=== PATIENT | female | born 1965 | race American Indian/Alaskan Native ===

== ENCOUNTER 2017-07-24 11:47 | Emergency (ER) | payer OTHER ==
[2017-07-24 12:07] VITALS: BP 149/100
[2017-07-24] MEDS ORDERED: MOTRIN PO ONE (14:03)
--- NOTE | 2017-07-24 14:29 | Cat Scan Report ---
FINAL REPORT PROCEDURE: CT HEAD/BRAIN WO CON TECHNIQUE: Computerized tomography of the head was performed without contrast material. HISTORY: headache COMPARISON: No prior studies are available for comparison. FINDINGS: Brain: Brain density appears normal. No evidence of intracranial hemorrhage. No parenchymal hemorrhage, mass lesions or mass effect are seen. No abnormal extraxial fluid collects or masses are seen. Nonspecific mineralization of the right and left basal ganglia are visualized. Ventricles: Ventricles are normal size and are midline. Bone Windows: No evidence of skull fracture. Paranasal sinuses: Visualized portions appear clear. Mastoid air cells: Clear IMPRESSION: Negative exam.
--- NOTE | 2017-07-24 15:56 | Emergency Department Report ---
Entered by EDGARD GOMEZ, acting as scribe for DAYDAY LI NP. - General Chief complaint: Skin Rash Stated complaint: SCALP IRRATATION Time Seen by Provider: 07/24/17 13:00 Source: patient Mode of arrival: Ambulatory Limitations: No Limitations - History of Present Illness Initial comments: This is a 52-year-old nontoxic, well nourished in appearance, no acute signs of distress presents with scalp irritation intermittent for 3 years. Patient states she noticed fungus in her scalp and went to a dermatologists and was prescribed topical fungal cream with unchanged symptoms. 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 She states she feels lumps and whelps in her scalp. Patient also has a secondary complaint of headache intermittent for 3 years. Patient stated has been going to [facility] and [facility] providers but never received a scan of the head. Patient is requesting a CT scan to rule out any abnormality. Patient described headache has intermittent aching diffisuly with level of 6/10. Patient describes headache as gradual onset. Patient denies chest pain, SOB, nausea, vomiting, blurry vision, trauma, back, nausea, vomiting , fever, chills, numbness or tingling. Patient states allergies she does not have any allergies to Flagyl. Patient stated she started to vomit during taking Flagyl but staetd he was not from Flagyl and was from Iron medication. MD complaint: other (scalp irritation and headache) -: Gradual, year(s) (3) Location: head Severity: moderate Severity scale (0 -10): 6 Quality: aching Consistency: intermittent Improves with: none Worsens with: none Context: none Associated symptoms: itching Treatments Prior to Arrival: none - Related Data Previous Rx's Medication Instructions Recorded Last Taken Type Permethrin 5% [Acticin 5% CREAM] 1 applicatio TP ONCE #60 gram 11/16/13 Rx Cefuroxime Axetil [Ceftin] 500 mg PO Q12H #20 tablet 06/07/14 Unknown Rx Pantoprazole [Protonix TAB] 40 mg PO DAILY #30 tablet 06/07/14 Unknown Rx Sucralfate [Carafate] 1 gm PO ACHS #30 tablet 06/07/14 Unknown Rx Warfarin [Coumadin] 6 mg PO DAILY@1700 #30 tablet 06/07/14 Unknown Rx oxyCODONE /ACETAMINOPHEN [Percocet 1 tab PO Q6HR PRN #24 tablet 06/07/14 Unknown Rx 5/325] Ibuprofen [Motrin 600 MG tab] 600 mg PO Q8H PRN #30 tablet 07/24/17 Unknown Rx Itraconazole [Onmel] 200 mg PO QDAY #7 tab 07/24/17 Unknown Rx Allergies Allergy/AdvReac Type Severity Reaction Status Date / Time metronidazole [From Flagyl] Allergy Vomiting Verified 05/25/14 18:59 Metronidazole HCl Allergy Vomiting Verified 09/16/13 04:26 [From Flagyl] Abscess Boil HPI - HPI Chief Complaint: Skin Rash Stated Complaint: SCALP IRRATATION Home Medications: Previous Rx's Medication Instructions Recorded Last Taken Type Permethrin 5% [Acticin 5% CREAM] 1 applicatio TP ONCE #60 gram 11/16/13 Rx Cefuroxime Axetil [Ceftin] 500 mg PO Q12H #20 tablet 06/07/14 Unknown Rx Pantoprazole [Protonix TAB] 40 mg PO DAILY #30 tablet 06/07/14 Unknown Rx Sucralfate [Carafate] 1 gm PO ACHS #30 tablet 06/07/14 Unknown Rx Warfarin [Coumadin] 6 mg PO DAILY@1700 #30 tablet 06/07/14 Unknown Rx oxyCODONE /ACETAMINOPHEN [Percocet 1 tab PO Q6HR PRN #24 tablet 06/07/14 Unknown Rx 5/325] Ibuprofen [Motrin 600 MG tab] 600 mg PO Q8H PRN #30 tablet 07/24/17 Unknown Rx Itraconazole [Onmel] 200 mg PO QDAY #7 tab 07/24/17 Unknown Rx Allergies/Adverse Reactions: Allergies Allergy/AdvReac Type Severity Reaction Status Date / Time metronidazole [From Flagyl] Allergy Vomiting Verified 05/25/14 18:59 Metronidazole HCl Allergy Vomiting Verified 09/16/13 04:26 [From Flagyl] ED Review of Systems Comment: All other systems reviewed and negative Constitutional: denies: chills, fever, weakness Eyes: denies: eye pain, eye discharge, vision change ENT: denies: ear pain, throat pain Respiratory: denies: cough, shortness of breath, wheezing Cardiovascular: denies: chest pain, palpitations Endocrine: no symptoms reported Gastrointestinal: denies: abdominal pain, nausea, vomiting, diarrhea Genitourinary: denies: urgency, dysuria, discharge Musculoskeletal: denies: back pain, joint swelling, arthralgia Skin: rash (scalp irritation with circular crusting and scaling.). denies: lesions, change in color, change in hair/nails Neurological: headache. denies: weakness, numbness, paresthesias Psychiatric: denies: anxiety, depression Hematological/Lymphatic: denies: easy bleeding, easy bruising ED Past Medical Hx - Past Medical History Hx Hypertension: No Hx Congestive Heart Failure: No Hx Diabetes: No Hx Deep Vein Thrombosis: Yes Hx Pulmonary Embolism: Yes Hx Liver Disease: No Hx Renal Disease: No Hx Seizures: No Hx Asthma: No Hx COPD: No Additional medical history: DVT - Surgical History Additional Surgical History: csection tubal ligation - Social History Smoking Status: Never Smoker Substance Use Type: None - Medications Home Medications: Home Medications Medication Instructions Recorded Confirmed Last Taken Type Permethrin 5% [Acticin 5% CREAM] 1 applicatio TP ONCE #60 gram 11/16/1305/13/14 Rx Cefuroxime Axetil [Ceftin] 500 mg PO Q12H #20 tablet 06/07/14 Unknown Rx Pantoprazole [Protonix TAB] 40 mg PO DAILY #30 tablet 06/07/14 Unknown Rx Sucralfate [Carafate] 1 gm PO ACHS #30 tablet 06/07/14 Unknown Rx Warfarin [Coumadin] 6 mg PO DAILY@1700 #30 tablet 06/07/14 Unknown Rx oxyCODONE /ACETAMINOPHEN [Percocet 1 tab PO Q6HR PRN #24 tablet 06/07/14 Unknown Rx 5/325] Ibuprofen [Motrin 600 MG tab] 600 mg PO Q8H PRN #30 tablet 07/24/17 Unknown Rx Itraconazole [Onmel] 200 mg PO QDAY #7 tab 07/24/17 Unknown Rx ED Physical Exam - General Limitations: No Limitations General appearance: alert, in no apparent distress - Head Head exam: Present: atraumatic, normocephalic, normal inspection - Eye Eye exam: Present: normal appearance, PERRL, EOMI. Absent: scleral icterus, conjunctival injection, nystagmus, periorbital swelling, periorbital tenderness Pupils: Present: normal accommodation - ENT ENT exam: Present: normal exam, normal orophraynx, mucous membranes moist, TM's normal bilaterally, normal external ear exam - Neck Neck exam: Present: normal inspection, full ROM. Absent: tenderness, meningismus, lymphadenopathy, thyromegaly - Respiratory Respiratory exam: Present: normal lung sounds bilaterally. Absent: respiratory distress, wheezes, rales, rhonchi, stridor, chest wall tenderness, accessory muscle use, decreased breath sounds, prolonged expiratory - Cardiovascular Cardiovascular Exam: Present: regular rate, normal rhythm, normal heart sounds. Absent: bradycardia, tachycardia, irregular rhythm, systolic murmur, diastolic murmur, rubs, gallop - GI/Abdominal GI/Abdominal exam: Present: soft, normal bowel sounds. Absent: distended, tenderness, guarding, rebound, rigid, diminished bowel sounds - Rectal Rectal exam: Present: deferred - Extremities Exam Extremities exam: Present: normal inspection, full ROM, normal capillary refill. Absent: tenderness, pedal edema, joint swelling, calf tenderness - Back Exam Back exam: Present: normal inspection, full ROM. Absent: tenderness, CVA tenderness (L), muscle spasm, paraspinal tenderness, vertebral tenderness, rash noted - Neurological Exam Neurological exam: Present: alert, oriented X3, CN II-XII intact, normal gait, reflexes normal - Expanded Neurological Exam Expanded Patient oriented to: Present: person, place, time Speech: Present: fluid speech Cranial nerves: EOM's Intact: Normal, Gag Reflex: Normal, Tongue Deviation: Normal, Nystagmus: Normal, Facial Sensation: Normal, Facial Palsy with Forehead Movement: Normal, Facial Palsy without Forehead Movement: Normal Cerebellar function: Finger to Nose: Normal, Heel to Tucker: Normal, Romberg: Normal Upper motor neuron: Joshua Neglect: Normal, Pronator Drift: Normal, Babinski Sign : Normal, Sensory Extinction: Normal Sensory exam: Upper Extremity Light Touch: Normal, Upper Extremity Pin Prick: Normal, Upper Extremity Temperature: Normal, UE 2 Point Discrimination: Normal, Lower Extremity Light Touch: Normal, Lower Extremity Pin Prick: Normal, Lower Extremity Temperature: Normal, LE 2 Point Discrimination: Normal Motor strength exam: RUE: 5, LUE: 5, RLE: 5, LLE: 5 DTR: bicep (R): 2+, bicep (L): 2+, tricep (R): 2+, tricep (L): 2+, knee (R): 2+ , knee (L): 2+, ankle (R): 2+, ankle (L): 2+ Best Eye Response ([place]): (4) open spontaneously Best Motor Response ([place]): (6) obeys commands Best Verbal Response ([place]): (5) oriented [place] Total: 15 - Psychiatric Psychiatric exam: Present: normal affect, normal mood - Skin Skin exam: Present: warm, dry, intact, normal color, other (scalp irritation with circular crusting, redness, and scaling.) ED Course Vital Signs 07/24/17 11:58 Temperature 98.1 F Pulse Rate 61 Respiratory 18 Rate Blood Pressure 149/100 O2 Sat by Pulse 100 Oximetry - Reevaluation(s) Reevaluation #1: 07/24/17 13:59 patient is speaking in full sentences with no signs of distress noted. ED Medical Decision Making - Medical Decision Making 52-year-old female that presents with tinea corporis and chronic headache. Patient requested for a CT scan. CT scan of head/brain has been obtained without contrast with normal findings and no abnormalities. Dictated by radiologist. Patient was notified of CT findings with no further questions noted by the patient. Patient be treated with itraconazole at discharge. Patient was instructed to follow-up with a primary care doctor/neurologist 3-5 days or symptoms worsen and continue return to emergency room as soon as possible. Patient is also instructed not to drink any alcohol while taking antibiotics. ED Disposition Clinical Impression: Tinea corporis Chronic headache Qualifiers: Headache type: unspecified Intractability: not intractable Qualified Code(s): R51 - Headache Disposition: DC-01 TO HOME OR SELFCARE Is pt being admited?: No Does the pt Need Aspirin: No Condition: Stable Instructions: Acute Headache (ED), Ibuprofen (By mouth), Itraconazole (By mouth ), Tinea Corporis (ED) Additional Instructions: follow-up with a primary care doctor/neurologist 3-5 days or symptoms worsen and continue return to emergency room as soon as possible. Do not consume any alcohol while taking antibiotics. Prescriptions: Ibuprofen [Motrin 600 MG tab] 600 mg PO Q8H PRN #30 tablet PRN Reason: Pain Itraconazole [Onmel] 200 mg PO QDAY #7 tab Referrals: PRIMARY CARE, [Primary Care Provider] - 3-5 Days CORAZON BUNN MD [Staff Physician] - 3-5 Days [facility] [Outside] - 3-5 Days [facility] [Outside] - 3-5 Days AMEE PÉREZ MD [Staff Physician] - 3-5 Days Forms: Work/School Release Form(ED) This documentation as recorded by the PATRICIA weber PEARL,accurately reflects the service I personally performed and the decisions made by ,DAYDAY LI, REPACKER.
== END 2017-07-24 14:38 | disposition home or self-care (01) ==
LOC: ED 11:47
DX: B35.4 Tinea corporis (principal); R51 Headache; Z88.8 Allergy status to other drugs, medicaments and biological substances
CPT/HCPCS: 70450

== ENCOUNTER 2018-01-04 09:07 | Emergency (ER) | payer SELFPAY ==
[2018-01-04 09:26] VITALS: BP 133/80
--- NOTE | 2018-01-04 12:29 | Emergency Department Report ---
HPI - General Chief Complaint: Skin Rash Time Seen by Provider: 01/04/18 12:24 - HPI HPI: Ms. Crarion presents with scalp irritation and eye watering. She feels a crawling sensation in her scalp. She has hives on her extremities. Symptoms have existed for several months. Denies throat swelling or dyspnea. ED Past Medical Hx - Past Medical History Previous Medical History?: Yes Hx Hypertension: No Hx Congestive Heart Failure: No Hx Diabetes: No Hx Deep Vein Thrombosis: Yes Hx Pulmonary Embolism: Yes Hx Liver Disease: No Hx Renal Disease: No Hx Seizures: No Hx Asthma: No Hx COPD: No Additional medical history: DVT - Surgical History Past Surgical History?: Yes Additional Surgical History: csection. tubal ligation - Social History Smoking Status: Never Smoker Substance Use Type: None - Medications Home Medications: Home Medications Medication Instructions Recorded Confirmed Last Taken Type Permethrin 5% [Acticin 5% CREAM] 1 applicatio TP ONCE #60 gram 11/16/1305/13/14 Rx Cefuroxime Axetil [Ceftin] 500 mg PO Q12H #20 tablet 06/07/14 Unknown Rx Pantoprazole [Protonix TAB] 40 mg PO DAILY #30 tablet 06/07/14 Unknown Rx Sucralfate [Carafate] 1 gm PO ACHS #30 tablet 06/07/14 Unknown Rx Warfarin [Coumadin] 6 mg PO DAILY@1700 #30 tablet 06/07/14 Unknown Rx oxyCODONE /ACETAMINOPHEN [Percocet 1 tab PO Q6HR PRN #24 tablet 06/07/14 Unknown Rx 5/325] Ibuprofen [Motrin 600 MG tab] 600 mg PO Q8H PRN #30 tablet 07/24/17 Unknown Rx Itraconazole [Onmel] 200 mg PO QDAY #7 tab 07/24/17 Unknown Rx Ketoconazole (Nf) [Ketoconazole 120 ml TP 1XW #1 shampoo 01/04/18 Unknown Rx Shampoo (Nf)] predniSONE [Deltasone] 60 mg PO QDAY 5 Days #15 tab 01/04/18 Unknown Rx ED Review of Systems ROS: Stated complaint: SKIN IRRITATION Other details as noted in HPI Comment: All other systems reviewed and negative Constitutional: denies: fever, malaise Respiratory: denies: cough Cardiovascular: denies: chest pain Physical Exam - Physical Exam Vital Signs: Vital Signs 01/04/18 09:21 Temperature 98.7 F Pulse Rate 60 Respiratory 18 Rate Blood Pressure 133/80 O2 Sat by Pulse 98 Oximetry Physical Exam: General: Well-appearing, no acute distress HEENT: Normocephalic atraumatic pupils equal round and reactive to light anicteric sclera Nose: no rhinorrhea Oropharynx: Clear mucous membranes no lesions scalp: moist hair without lesions or infestation Neck: supple, no meningismus Chest: Clear to auscultation bilaterally no rales rhonchi no wheezes Cardiac: Regular rate and rhythm no murmurs no rubs no gallops Abdomen: Soft nontender nondistended positive bowel sounds no guarding Extremities: No cyanosis no clubbing no edema Neuro: Moves all extremities 4, no gross deficits Psychiatric: Alert and oriented 4 normal affect normal judgment normal insight Skin: mild redness upper extremities ED Course Vital Signs 01/04/18 09:21 Temperature 98.7 F Pulse Rate 60 Respiratory 18 Rate Blood Pressure 133/80 O2 Sat by Pulse 98 Oximetry ED Medical Decision Making - Medical Decision Making Ms. Carrion presents with scalp irritation, watery eyes and skin redness. I reviewed medical record. She has hx of scabies and delusions of parasites. I do not suspect acute psychosis. She does not appear to be a harm to herself or others. I will prescribe prednisone and antifungal shampoo. Critical care attestation.: If time is entered above; I have spent that time in minutes in the direct care of this critically ill patient, excluding procedure time. ED Disposition Clinical Impression: Scalp irritation, Dermatitis Disposition: DC-01 TO HOME OR SELFCARE Is pt being admited?: No Does the pt Need Aspirin: No Condition: Good Instructions: Contact Dermatitis (ED) Prescriptions: Ketoconazole (Nf) [Ketoconazole Shampoo (Nf)] 120 ml TP 1XW #1 shampoo predniSONE [Deltasone] 60 mg PO QDAY 5 Days #15 tab Referrals: PRIMARY CARE, [Primary Care Provider] - 3-5 Days Time of Disposition: 12:33
== END 2018-01-04 12:44 | disposition home or self-care (01) ==
LOC: ED 09:07
DX: L30.8 Other specified dermatitis (principal); Z86.711 Personal history of pulmonary embolism; Z98.51 Tubal ligation status
CPT/HCPCS: 99282

== ENCOUNTER 2018-08-03 10:19 | Emergency (ER) | payer SELFPAY ==
[2018-08-03] MEDS ORDERED: ZOFRAN IV ONE (13:08)
[2018-08-03] MEDS ORDERED: MORPHINE IV ONE ×2 (13:08→16:27)
--- NOTE | 2018-08-03 13:12 | Emergency Department Report ---
Blank Doc - Documentation Documentation: Patient presents to the emergency department with a chief complaint of bilateral leg pain as well as chest pain. Patient states she was diagnosed with a DVT of her left leg at another hospital was not giving anticoagulation medications. Patient states she has a history of blood clots of her lungs and lids. Patient also states that she is short of breath with exertion is concerned that she might have a pulmonary emboli as well. Care of patient will be taken over by the mid-level care provider with me available for consultation
--- NOTE | 2018-08-03 13:20 | Emergency Department Report ---
ED Extremity Problem HPI - General Chief complaint: Pain General Stated complaint: SWELLING ON BOTH LEGS/BLOOD CLOTS Time Seen by Provider: 08/03/18 12:42 Source: patient Mode of arrival: Ambulatory Limitations: Physical Limitation - History of Present Illness Initial comments: Patient presents to the emergency department with a chief complaint of bilateral leg pain as well as chest pain. Patient states she was diagnosed with a DVT of her left leg at another hospital was not giving anticoagulation medications. Patient states she has a history of blood clots of her lungs and legs. Patient also states that she is short of breath with exertion is concerned that she might have a pulmonary emboli as well. Patient reports that the pain is 10/10, worse in left leg and right and she is having difficulty walking. She reports pain is crampy and sharp and she has taken medication but it is not helping. She said swelling to her left leg is getting worse. No alleviating factors but exacerbated by walking, palpation. She denies any shortness of breath. Denies any cough, nausea or vomiting or fever or chills. She says she was not Coumadin which did not occur off for years ago. She says she also has IVC filter and which got lost in her body and that was placed over 20 years ago. Patient denies any history of clotting disorders. She does not have access to healthcare at present. She denies having a primary care doctor. Denies any abdominal or back pain. MD Complaint: extremity pain, extremity swelling Onset/Timin -: week(s) Location: bilateral lower extremity History of Same: Yes -: Yes myalgia, Yes arthralgia, No fever, No associated dyspnea, Yes associated chest pain Radiation: none Severity scale (0 -10): 10 Quality: aching, sharp, constant Improves with: nothing Worsens with: weight bearing, walking, exertion, palpation Associated Symptoms: chest pain, myalgias, arthralgias. denies: shortness of breath, fever, rash - Related Data Previous Rx's Medication Instructions Recorded Last Taken Type Permethrin 5% [Acticin 5% CREAM] 1 applicatio TP ONCE #60 gram 11/16/13 Rx Cefuroxime Axetil [Ceftin] 500 mg PO Q12H #20 tablet 06/07/14 Unknown Rx Pantoprazole [Protonix TAB] 40 mg PO DAILY #30 tablet 06/07/14 Unknown Rx Sucralfate [Carafate] 1 gm PO ACHS #30 tablet 06/07/14 Unknown Rx Warfarin [Coumadin] 6 mg PO DAILY@1700 #30 tablet 06/07/14 Unknown Rx Ibuprofen [Motrin 600 MG tab] 600 mg PO Q8H PRN #30 tablet 07/24/17 Unknown Rx Itraconazole [Onmel] 200 mg PO QDAY #7 tab 07/24/17 Unknown Rx Ketoconazole (Nf) [Ketoconazole 120 ml TP 1XW #1 shampoo 01/04/18 Unknown Rx Shampoo (Nf)] predniSONE [Deltasone] 60 mg PO QDAY 5 Days #15 tab 01/04/18 Unknown Rx Apixaban [Eliquis] 5 mg PO Q12H 14 Days #74 tablet 08/03/18 Unknown Rx oxyCODONE /ACETAMINOPHEN [Percocet 1 tab PO Q6HR PRN #12 tablet 08/03/18 Unknown Rx 5/325 mg] Allergies Allergy/AdvReac Type Severity Reaction Status Date / Time metronidazole [From Flagyl] Allergy Vomiting Verified 05/25/14 18:59 Metronidazole HCl Allergy Vomiting Verified 09/16/13 04:26 [From Flagyl] ED Review of Systems ROS: Stated complaint: SWELLING ON BOTH LEGS/BLOOD CLOTS Other details as noted in HPI Constitutional: denies: chills, fever Eyes: denies: eye pain, eye discharge, vision change ENT: denies: ear pain, throat pain, congestion Respiratory: denies: cough, shortness of breath, SOB with exertion, SOB at rest , stridor, wheezing Cardiovascular: chest pain, edema. denies: palpitations, dyspnea on exertion, syncope Gastrointestinal: denies: abdominal pain, nausea, vomiting, diarrhea, hematemesis, hematochezia Genitourinary: denies: urgency, dysuria, hematuria, discharge Musculoskeletal: arthralgia, myalgia, other (swelling to both legs). denies: back pain, joint swelling Skin: denies: rash, lesions Neurological: denies: headache, weakness, numbness, paresthesias, confusion, abnormal gait, vertigo ED Past Medical Hx - Past Medical History Previous Medical History?: Yes Hx Hypertension: No Hx Congestive Heart Failure: No Hx Diabetes: No Hx Deep Vein Thrombosis: Yes Hx Pulmonary Embolism: Yes Hx Liver Disease: No Hx Renal Disease: No Hx Seizures: No Hx Asthma: No Hx COPD: No Additional medical history: DVT - Surgical History Past Surgical History?: Yes Additional Surgical History: csection. tubal ligation. 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 in her body - Family History Family history: hypertension - Social History Smoking Status: Never Smoker Substance Use Type: None - Medications Home Medications: Home Medications Medication Instructions Recorded Confirmed Last Taken Type Permethrin 5% [Acticin 5% CREAM] 1 applicatio TP ONCE #60 gram 11/16/1305/13/14 Rx Cefuroxime Axetil [Ceftin] 500 mg PO Q12H #20 tablet 06/07/14 Unknown Rx Pantoprazole [Protonix TAB] 40 mg PO DAILY #30 tablet 06/07/14 Unknown Rx Sucralfate [Carafate] 1 gm PO ACHS #30 tablet 06/07/14 Unknown Rx Warfarin [Coumadin] 6 mg PO DAILY@1700 #30 tablet 06/07/14 Unknown Rx Ibuprofen [Motrin 600 MG tab] 600 mg PO Q8H PRN #30 tablet 07/24/17 Unknown Rx Itraconazole [Onmel] 200 mg PO QDAY #7 tab 07/24/17 Unknown Rx Ketoconazole (Nf) [Ketoconazole 120 ml TP 1XW #1 shampoo 01/04/18 Unknown Rx Shampoo (Nf)] predniSONE [Deltasone] 60 mg PO QDAY 5 Days #15 tab 01/04/18 Unknown Rx Apixaban [Eliquis] 5 mg PO Q12H 14 Days #74 tablet 08/03/18 Unknown Rx oxyCODONE /ACETAMINOPHEN [Percocet 1 tab PO Q6HR PRN #12 tablet 08/03/18 Unknown Rx 5/325 mg] ED Physical Exam - General Limitations: Physical Limitation General appearance: alert, in no apparent distress - Head Head exam: Present: atraumatic, normocephalic, normal inspection - Eye Eye exam: Present: normal appearance, PERRL, EOMI Pupils: Present: normal accommodation - ENT ENT exam: Present: normal exam, normal orophraynx, mucous membranes moist, TM's normal bilaterally, normal external ear exam - Neck Neck exam: Present: normal inspection, full ROM. Absent: tenderness, lymphadenopathy - Respiratory Respiratory exam: Present: normal lung sounds bilaterally. Absent: respiratory distress, wheezes, rales, rhonchi, stridor, chest wall tenderness - Cardiovascular Cardiovascular Exam: Present: regular rate, normal rhythm, normal heart sounds. Absent: systolic murmur, diastolic murmur - GI/Abdominal GI/Abdominal exam: Present: soft, normal bowel sounds. Absent: distended, tenderness, guarding, rebound, rigid, organomegaly, mass - Extremities Exam Extremities exam: Present: full ROM, tenderness (both legs), normal capillary refill, other. Absent: normal inspection, pedal edema (patient able to ambulate but she is limping patient states that she is having pain which is worse on the left), joint swelling, calf tenderness - Expanded Lower Extremity Exam Left Hip exam: Present: normal inspection, full ROM, pelvic stability. Absent: tenderness, swelling, abrasion, laceration, ecchymosis, deformity, crepidus, dislocation, erythema, external rotation, internal rotation, shortening Upper Leg exam: Present: normal inspection, full ROM. Absent: tenderness, swelling, abrasion, laceration, ecchymosis, deformity, crepidus, dislocation, erythema Knee exam: Present: full ROM, tenderness (posterior popliteal space), full knee extension. Absent: normal inspection, swelling, abrasion, laceration, ecchymosis, deformity, crepidus, dislocation, erythema, effusion, pain w/ pronation/supination, posterior draw sign, pain/laxity with valgus, pain/laxity with varus Lower Leg exam: Present: full ROM, tenderness, swelling, Morenita's sign. Absent: normal inspection, abrasion, laceration, ecchymosis, deformity, crepidus, dislocation, erythema, palpable cord Ankle exam: Present: normal inspection, full ROM. Absent: tenderness, swelling , abrasion, laceration, ecchymosis, deformity, crepidus, dislocation, erythema Foot/Toe exam: Present: normal inspection, full ROM. Absent: tenderness, swelling, abrasion, laceration, ecchymosis, deformity, crepidus, dislocation, erythema, amputation, puncture wound, foreign body, calcaneal tenderness, tenderness at base of 5th metatarsal, nail avulsion, subungual hematoma Neuro vascular tendon exam: Present: no vascular compromise, significant pain with passive ROM of distal joint. Absent: pulse deficit, abnormal cap refill, motor deficit, sensory deficit, tendon deficit, extremity cold to touch, pallor , abnormal 2-point discrimination, decreased fine/light touch, foot drop, peroneal nerve deficit Gait: Positive: antalgic Right Hip exam: Present: normal inspection, full ROM, pelvic stability. Absent: tenderness, swelling, abrasion, laceration, ecchymosis, deformity, crepidus, dislocation, erythema, external rotation, internal rotation, shortening Upper Leg exam: Present: normal inspection, full ROM. Absent: tenderness, swelling, abrasion, laceration, ecchymosis, deformity, crepidus, dislocation, erythema Knee exam: Present: normal inspection, full ROM, full knee extension. Absent: tenderness, swelling, abrasion, laceration, ecchymosis, deformity, crepidus, dislocation, erythema, effusion, pain w/ pronation/supination, posterior draw sign, pain/laxity with valgus, pain/laxity with varus Lower Leg exam: Present: full ROM, tenderness, swelling, Morenita's sign. Absent: normal inspection, abrasion, laceration, ecchymosis, deformity, crepidus, dislocation, erythema, palpable cord Ankle exam: Present: normal inspection, full ROM. Absent: tenderness, swelling , abrasion, laceration, ecchymosis, deformity, crepidus, dislocation, erythema Foot/Toe exam: Present: normal inspection, full ROM. Absent: tenderness, swelling, abrasion, laceration, ecchymosis, deformity, crepidus, dislocation, erythema, amputation, puncture wound, foreign body, calcaneal tenderness, tenderness at base of 5th metatarsal, nail avulsion, subungual hematoma Neuro vascular tendon exam: Present: no vascular compromise. Absent: pulse deficit, abnormal cap refill, motor deficit, sensory deficit, tendon deficit, extremity cold to touch, abnormal 2-point discrimination, decreased fine/light touch, foot drop, significant pain with passive ROM of distal joint Gait: Positive: observed and limited by pain - Back Exam Back exam: Present: normal inspection, full ROM, other (ambulate with limp. Due to bilateral lower extremity pain). Absent: tenderness, CVA tenderness (R) , CVA tenderness (L), muscle spasm, paraspinal tenderness, vertebral tenderness , rash noted - Neurological Exam Neurological exam: Present: alert, oriented X3, abnormal gait (limp. Due to bilateral lower extremity pain and swelling to lower extremity), reflexes normal. Absent: motor sensory deficit - Psychiatric Psychiatric exam: Present: normal affect, normal mood - Skin Skin exam: Present: warm, dry, intact, normal color. Absent: rash ED Course Vital Signs 08/03/18 08/03/18 08/03/18 10:26 14:24 15:40 Temperature 99.9 F H Pulse Rate 91 H Respiratory 18 18 Rate Blood Pressure 134/88 Blood Pressure [Left] O2 Sat by Pulse 99 99 Oximetry 08/03/18 08/03/18 08/03/18 15:56 16:25 16:35 Temperature Pulse Rate Respiratory 18 18 18 Rate Blood Pressure Blood Pressure [Left] O2 Sat by Pulse Oximetry 08/03/18 19:55 Temperature 98.6 F Pulse Rate 62 Respiratory 18 Rate Blood Pressure Blood Pressure 125/68 [Left] O2 Sat by Pulse 99 Oximetry - Reevaluation(s) Reevaluation #1: 08/03/18 16:22 Patient received morphine 4 mg IV for pain and offered 4 mg IV for pain and bilateral lower extremity especially to left lower extremity. She has bilateral lower extremity chronic DVT with left lower extremity acute on chronic DVT. Patient is requesting more pain medication she said her left leg is hurting. Patient and ordered VQ scan due to shortness of breath looking for pulmonary embolism and she is awaiting study. Reevaluation #2: 08/03/18 18:14 Patient received an additional 2 mg of morphine IV for left leg pain which she said her pain is better. CTA chest reveals no pulmonary embolism Reevaluation #3: 08/03/18 19:49 Patient is still awaiting an her Eliquis to come up from pharmacy. She received morphine 2 mg but her pain is back so she will be given Percocet 5/3- 52 tablets by mouth. After a look with administration, she will be observed for 2 hours and then she will be going home. Patient updated on plans. 08/03/18 19:50 Reevaluation #4: 08/03/18 20:52 Patient started on Eliquis and will be discharged and 2 hours. Vital signs are stable and she is afebrile. Pain is better after Percocet Reevaluation #5: 08/03/18 22:17 Patient is stable and in no acute distress. Pain is controlled. Vital signs stable she is afebrile ED Medical Decision Making - Lab Data Result diagrams: 08/03/18 13:31 08/03/18 13:31 Lab Results 08/03/18 08/03/18 08/03/18 Range/Units 13:31 13:31 13:31 WBC 7.8 (4.5-11.0) K/mm3 RBC 4.67 (3.65-5.03) M/mm3 Hgb 13.9 (10.1-14.3) gm/dl Hct 41.3 (30.3-42.9) % MCV 88 (79-97) fl MCH 30 (28-32) pg MCHC 34 (30-34) % RDW 12.3 L (13.2-15.2) % Plt Count 164 (140-440) K/mm3 Lymph % (Auto) 25.5 (13.4-35.0) % Eaton % (Auto) 9.2 H (0.0-7.3) % Eos % (Auto) 3.7 (0.0-4.3) % Baso % (Auto) 1.2 (0.0-1.8) % Lymph # 2.0 (1.2-5.4) K/mm3 Eaton # 0.7 (0.0-0.8) K/mm3 Eos # 0.3 (0.0-0.4) K/mm3 Baso # 0.1 (0.0-0.1) K/mm3 Seg Neutrophils % 60.4 (40.0-70.0) % Seg Neutrophils # 4.7 (1.8-7.7) K/mm3 PT (12.2-14.9) Sec. INR (0.87-1.13) APTT (24.2-36.6) Sec. Sodium 141 (137-145) mmol/L Potassium 3.9 (3.6-5.0) mmol/L Chloride 102.2 (98-107) mmol/L Carbon Dioxide 28 (22-30) mmol/L Anion Gap 15 mmol/L BUN 10 (7-17) mg/dL Creatinine 0.6 L (0.7-1.2) mg/dL Estimated GFR > 60 ml/min BUN/Creatinine Ratio 17 % Glucose 99 (65-100) mg/dL Calcium 9.4 (8.4-10.2) mg/dL Total Bilirubin 0.30 (0.1-1.2) mg/dL AST 42 H (5-40) units/L ALT 26 (7-56) units/L Alkaline Phosphatase 85 (35-129) units/L Troponin T < 0.010 (0.00-0.029) ng/mL NT-Pro-B Natriuret Pep 149.6 (0-900) pg/mL Total Protein 7.8 (6.3-8.2) g/dL Albumin 4.3 (3.9-5) g/dL Albumin/Globulin Ratio 1.2 % HCG, Qual (Negative) HCG, Quant (0-4) mIU/mL 08/03/18 08/03/18 08/03/18 Range/Units 13:31 15:17 15:17 WBC (4.5-11.0) K/mm3 RBC (3.65-5.03) M/mm3 Hgb (10.1-14.3) gm/dl Hct (30.3-42.9) % MCV (79-97) fl MCH (28-32) pg MCHC (30-34) % RDW (13.2-15.2) % Plt Count (140-440) K/mm3 Lymph % (Auto) (13.4-35.0) % Eaton % (Auto) (0.0-7.3) % Eos % (Auto) (0.0-4.3) % Baso % (Auto) (0.0-1.8) % Lymph # (1.2-5.4) K/mm3 Eaton # (0.0-0.8) K/mm3 Eos # (0.0-0.4) K/mm3 Baso # (0.0-0.1) K/mm3 Seg Neutrophils % (40.0-70.0) % Seg Neutrophils # (1.8-7.7) K/mm3 PT 12.7 (12.2-14.9) Sec. INR 0.91 (0.87-1.13) APTT 23.5 L (24.2-36.6) Sec. Sodium (137-145) mmol/L Potassium (3.6-5.0) mmol/L Chloride (98-107) mmol/L Carbon Dioxide (22-30) mmol/L Anion Gap mmol/L BUN (7-17) mg/dL Creatinine (0.7-1.2) mg/dL Estimated GFR ml/min BUN/Creatinine Ratio % Glucose (65-100) mg/dL Calcium (8.4-10.2) mg/dL Total Bilirubin (0.1-1.2) mg/dL AST (5-40) units/L ALT (7-56) units/L Alkaline Phosphatase (35-129) units/L Troponin T < 0.010 (0.00-0.029) ng/mL NT-Pro-B Natriuret Pep (0-900) pg/mL Total Protein (6.3-8.2) g/dL Albumin (3.9-5) g/dL Albumin/Globulin Ratio % HCG, Qual (Negative) HCG, Quant 4.26 H (0-4) mIU/mL 08/03/18 Range/Units 15:30 WBC (4.5-11.0) K/mm3 RBC (3.65-5.03) M/mm3 Hgb (10.1-14.3) gm/dl Hct (30.3-42.9) % MCV (79-97) fl MCH (28-32) pg MCHC (30-34) % RDW (13.2-15.2) % Plt Count (140-440) K/mm3 Lymph % (Auto) (13.4-35.0) % Eaton % (Auto) (0.0-7.3) % Eos % (Auto) (0.0-4.3) % Baso % (Auto) (0.0-1.8) % Lymph # (1.2-5.4) K/mm3 Eaton # (0.0-0.8) K/mm3 Eos # (0.0-0.4) K/mm3 Baso # (0.0-0.1) K/mm3 Seg Neutrophils % (40.0-70.0) % Seg Neutrophils # (1.8-7.7) K/mm3 PT (12.2-14.9) Sec. INR (0.87-1.13) APTT (24.2-36.6) Sec. Sodium (137-145) mmol/L Potassium (3.6-5.0) mmol/L Chloride (98-107) mmol/L Carbon Dioxide (22-30) mmol/L Anion Gap mmol/L BUN (7-17) mg/dL Creatinine (0.7-1.2) mg/dL Estimated GFR ml/min BUN/Creatinine Ratio % Glucose (65-100) mg/dL Calcium (8.4-10.2) mg/dL Total Bilirubin (0.1-1.2) mg/dL AST (5-40) units/L ALT (7-56) units/L Alkaline Phosphatase (35-129) units/L Troponin T (0.00-0.029) ng/mL NT-Pro-B Natriuret Pep (0-900) pg/mL Total Protein (6.3-8.2) g/dL Albumin (3.9-5) g/dL Albumin/Globulin Ratio % HCG, Qual Negative (Negative) HCG, Quant (0-4) mIU/mL - EKG Data -: EKG Interpreted by Me (Dr. Luque) EKG shows normal: sinus rhythm Rate: bradycardia (55 beats per minutes) - EKG Data When compared to previous EKG there are: no significant change Interpretation: no acute changes, normal EKG - Radiology Data Radiology results: report reviewed Preliminary bilateral lower extremity venous duplex studies report shows chronic DVT in both CFV's. And acute on chronic DVT in left mid saphenous vein extending onto the left distal saphenous vein, left popliteal vein and left mid popliteal vein and peroneal veins and mid calf. Final report to be read by CTA lungs shows no PE and this was dictated by radiologist and report reviewed by myself. Both MICHEAL BARNEY Female : 1965 [facility]# [id number] 08/03/18 14:41 - Radiology Dept. Note by MILADY CAMPA [facility] Num: [id number] : 1965 Patient Age: 53 VASCULAR LAB.PRELIMINARY REPORT. BLE VENOUS DUPLEX DONE. EVIDENCE OF CHRONIC DVT IN BOTH CFV'S. ACUTE ON CHRONIC DVT IN THE LT.MID SFV EXTENDING DOWN TO THE LT.DS SFV,LT.POP V AND LT.MID PTV/PERONEAL VEINS IN MID CALF. INFORMED AT 1440. Initialized on 08/03/18 14:41 - END OF NOTE Findings [facility] [address] [place] [address] Cat Scan Report Signed Patient: MICHEAL BARNEY MR#: [id number] : 1965 Acct:[id number] Age/Sex: 53 / F ADM Date: 08/03/18 Loc: ED Attending Dr: Ordering Physician: NICHOLE HEARD Date of Service: 08/03/18 Procedure(s): CT angio chest Accession Number(s): [id number] cc: NICHOLE HEARD FINAL REPORT PROCEDURE: CT angiogram chest with contrast. TECHNIQUE: Computerized tomographic angiography of the chest was performed after the IV injection of iodinated nonionic contrast including image processing. The image data was postprocessed using 2-dimensional multiplanar reformatted (MPR) and 3-dimensional (MIP and/or volume rendered) techniques. HISTORY: sob, DVT. Looking for PE COMPARISON: No prior studies are available for comparison. FINDINGS: The trachea and central bronchi appear normal. The lungs are clear and well expanded. There are no signs of pneumonia. The thoracic aorta has a normal caliber without evidence of dissection. The bolus enhancement of the pulmonary arteries is suboptimal. The central pulmonary arteries and 1st order branches appear normal. This study could miss more peripheral emboli. There is no mediastinal adenopathy. The heart size is normal. There are no pleural effusions. The adrenal glands are not enlarged. The thoracic skeleton appears intact. IMPRESSION: Less than ideal evaluation of the pulmonary arteries. No evidence of pulmonary embolism. Transcribed By: MRM Dictated By: CORAZON ORDOÑEZ MD Electronically Authenticated By: CORAZON ORDOÑEZ MD Signed Date/Time: 08/03/181732 DD/ 32 TD/TT: 08/03/181732 - Medical Decision Making This is a 53-year-old patient who came in here complaining of swelling to both legs and pain and swelling and pain is worst in left leg. She essentially went to a hospital last week and it told that she had a DVT in her left leg but they only gave her pain medication and did not give her any blood thinner. Patient says she has a history of DVT in both legs and also pulmonary embolism and she is complaining of some chest pain. She is currently not taking any medication and she does not have access to medical care and she does not have a primary care doctor Patient was screened by Dr. Luque and orders. She was treated for pain to her legs with morphine a total of 6 mg IV and 4 mg and 2 mg increments which helped her pain. While waiting in for her medication for DVT she developed pain and she received Percocet 2 tablets. Emergency room which helped her pain. Vital signs are stable and she is afebrile. Patient also received Zofran 4 mg IV to prevent nausea. She has bilateral duplex Doppler ultrasound chronic bilateral DVT seen but also acute and chronic DVT seen in left lower leg which is the one that is more painful and swollen. Patient had CTA chest which did not show any PE. I corroborated this to Dr. Luque and it was decided the patient will be discharged home on Eliquis. Preliminary ultrasound report for DVT seen but still awaiting final report from radiologist. CT at bedtime dictated and report reviewed by myself and Dr. Luque. Patient had CBC, CMP, BNP, test, troponin which are all stable. PT PTT stable with mild elevation in PTT I discussed lab results and radiology reports with patient and told her that she has an acute DVT on top of chronic DVT in her left leg and she also has chronic DVT in right leg. Patient does not have a primary care doctor nor does she have insurance so she was given a liquid 14 day package. She was given her first dose of Eliquis 10 mg at 9 PM and observed for 2 hours and discharged home with prescription for Eliquis and Percocet. I went over her packet in detail with patient and how to take a look with and she voiced understanding. I discussed with her that she needs to take a dose in the morning and follow directions on prescription and in packet on how to take this medication. I also went over medication with her and told her to read discharge information on this medication and she voiced understanding. Patient discharged home in stable condition with her family member. Vital signs stable and her pains controlled and she is in no acute distress. I gave her multiple resources for health clinics in [facility] that does sliding scale fees based on income and I told her to call around to see who has the least expensive visit. I told her that she will need to follow-up with a primary care doctor on 08/07/2018 and they will need to manage her DVT. She also knows that she has to call the number on the package inserts. - Differential Diagnosis DVT, PE, edema, CHF, PNA. Critical care attestation.: If time is entered above; I have spent that time in minutes in the direct care of this critically ill patient, excluding procedure time. ED Disposition Clinical Impression: Swelling of lower extremity Deep vein thrombosis (DVT) of left lower extremity Qualifiers: Affected thrombotic vein of extremity: unspecified vein of extremity Chronicity : acute Qualified Code(s): I82.402 - Acute embolism and thrombosis of unspecified deep veins of left lower extremity Chronic deep vein thrombosis (DVT) of both lower extremities Qualifiers: Affected thrombotic vein of extremity: unspecified vein of extremity Qualified Code(s): I82.503 - Chronic embolism and thrombosis of unspecified deep veins of lower extremity, bilateral Chest pain Qualifiers: Chest pain type: unspecified Qualified Code(s): R07.9 - Chest pain, unspecified Disposition: DC- TO HOME OR SELFCARE Is pt being admited?: No Does the pt Need Aspirin: No Condition: Stable Instructions: Apixaban (By mouth), Chest Pain (ED), Deep Venous Thrombosis (ED) , Leg Edema (ED) Additional Instructions: Please follow up with outside Medical Center as discussed for management of acute DVT in left leg and chronic DVT in both legs. Take Elequis as prescribed. This is a blood thinner. The discharge information given on this medication If he develops shortness of breath, chest pain, please return to the emergency room FRITZ Take Percocet for severe pain in leg but please do not drive or operate heavy machinery while taking this medication and make sure you take this medication with lots of fiber and drink plenty flutter because it can cause constipation. Please see multiple referral to clinics that will help few if you do not have any health insurance U will need to contact them tomorrow to see who he can get an appointment with. See insert for Eliquis and follow instructions on pamphlet Also, please see packet inserts for side effects. See directions on prescription on how to take Eliquis Prescriptions: Apixaban [Eliquis] 5 mg PO Q12H 14 Days #74 tablet oxyCODONE /ACETAMINOPHEN [Percocet 5/325 mg] 1 tab PO Q6HR PRN #12 tablet PRN Reason: severe pain Referrals: [facility] [Outside] - 08/04/18 [facility] [Outside] - 08/04/18 [facility] [Outside] - 08/04/18 [facility] [Outside] - 08/04/18 [facility] [Outside] - 08/04/18 Forms: Accompanied Note
[2018-08-03 13:40] LABS: Basophils # (Auto) 0.1 K/mm3 (0.0-0.1); Basophils % (Auto) 1.2 % (0.0-1.8); Eosinophils # (Auto) 0.3 K/mm3 (0.0-0.4); Eosinophils % (Auto) 3.7 % (0.0-4.3); Hematocrit 41.3 % (30.3-42.9); Hemoglobin 13.9 gm/dl (10.1-14.3); Lymphocytes % (Auto) 25.5 % (13.4-35.0); Mean Corpuscular HGB Conc 34 % (30-34); Mean Corpuscular Hemoglobin 30 pg (28-32); Mean Corpuscular Volume 88 fl (79-97); Monocytes # (Auto) 0.7 K/mm3 (0.0-0.8); Monocytes % (Auto) 9.2 % (0.0-7.3); Platelet Count 164 K/mm3 (140-440); Red Blood Count 4.67 M/mm3 (3.65-5.03); Red Cell Distribution Width 12.3 % (13.2-15.2)
[2018-08-03 13:59] LABS: Alanine Aminotransferase 26 units/L (7-56); Albumin 4.3 g/dL (3.9-5); BUN/Creatinine Ratio 17; Blood Urea Nitrogen 10 mg/dL (7-17); Calcium 9.4 mg/dL (8.4-10.2); Hemolysis Index 7
[2018-08-03] MEDS ORDERED: MORPHINE ONE ×2 (15:12→16:23)
[2018-08-03] MEDS ORDERED: ZOFRAN ONE (15:12)
[2018-08-03 15:53] LABS: INR 0.91 (0.87-1.13); Partial Thromboplastin Time 23.5 Sec. (24.2-36.6)
--- NOTE | 2018-08-03 17:34 | Cat Scan Report ---
FINAL REPORT PROCEDURE: CT angiogram chest with contrast. TECHNIQUE: Computerized tomographic angiography of the chest was performed after the IV injection of iodinated nonionic contrast including image processing. The image data was postprocessed using 2-dimensional multiplanar reformatted (MPR) and 3-dimensional (MIP and/or volume rendered) techniques. HISTORY: sob, DVT. Looking for PE COMPARISON: No prior studies are available for comparison. FINDINGS: The trachea and central bronchi appear normal. The lungs are clear and well expanded. There are no signs of pneumonia. The thoracic aorta has a normal caliber without evidence of dissection. The bolus enhancement of the pulmonary arteries is suboptimal. The central pulmonary arteries and 1st order branches appear normal. This study could miss more peripheral emboli. There is no mediastinal adenopathy. The heart size is normal. There are no pleural effusions. The adrenal glands are not enlarged. The thoracic skeleton appears intact. IMPRESSION: Less than ideal evaluation of the pulmonary arteries. No evidence of pulmonary embolism.
[2018-08-03] MEDS ORDERED: ELIQUIS PO ONE (18:37)
[2018-08-03] MEDS ORDERED: PERCOCET 5/325 PO ONE (19:49)
[2018-08-03 19:57] VITALS: BP 125/68
== END 2018-08-03 23:17 | disposition home or self-care (01) ==
LOC: ED 10:19
DX: I82.402 Acute embolism and thrombosis of unspecified deep veins of left lower extremity (principal); I82.503 Chronic embolism and thrombosis of unspecified deep veins of lower extremity, bilateral; R07.89 Other chest pain; Z88.1 Allergy status to other antibiotic agents; Z98.51 Tubal ligation status; Z79.899 Other long term (current) drug therapy
CPT/HCPCS: 36415; 71275; 80053; 83880; 84484; 84702; 84703; 85025; 85610; 85730; 93005; 93010; 93970; 96374; 96375; 96376; 99284; J2270; J2405; Q9967

== ENCOUNTER 2020-07-26 14:06 | Emergency (ER) | payer SELFPAY ==
[2020-07-26] MEDS ORDERED: ASPIRIN 325 MG TAB PO ONE (14:29)
--- NOTE | 2020-07-26 15:11 | XRay Report ---
CHEST 1 VIEW 07/26/2020 2:30 PM INDICATION / CLINICAL INFORMATION: Chest Pain. COMPARISON: None available. FINDINGS: SUPPORT DEVICES: None. HEART / MEDIASTINUM: No significant abnormality. LUNGS / PLEURA: No significant pulmonary or pleural abnormality. No pneumothorax. ADDITIONAL FINDINGS: No significant additional findings. IMPRESSION: 1. No acute findings. Signer Name: Owen Schuler MD Signed: 07/26/2020 3:07 PM Workstation Name: [id number]
[2020-07-26 15:37] LABS: Basophils # (Auto) 0.1 K/mm3 (0.0-0.1); Eosinophils # (Auto) 0.3 K/mm3 (0.0-0.4); Eosinophils % (Auto) 4.6 % (0.0-4.3); Hematocrit 41.1 % (30.3-42.9); Hemoglobin 13.7 gm/dl (10.1-14.3); Lymphocytes # (Auto) 2.1 K/mm3 (1.2-5.4); Lymphocytes % (Auto) 31.4 % (13.4-35.0); Mean Corpuscular HGB Conc 33 % (30-34); Mean Corpuscular Volume 90 fl (79-97); Monocytes # (Auto) 0.5 K/mm3 (0.0-0.8); Monocytes % (Auto) 7.7 % (0.0-7.3); Platelet Count 197 K/mm3 (140-440); Red Blood Count 4.57 M/mm3 (3.65-5.03); Red Cell Distribution Width 13.2 % (13.2-15.2)
[2020-07-26 15:41] LABS: Blood Urea Nitrogen 7 mg/dL (7-17); Calcium 9.4 mg/dL (8.4-10.2); Hemolysis Index 8
[2020-07-26 15:42] LABS: BUN/Creatinine Ratio 10
[2020-07-26] MEDS ORDERED: ACETAMINOPHEN W/CODEINE 300-30 MG TAB PO ONE (17:33)
[2020-07-26] MEDS ORDERED: BENZONATATE 100 MG CAP PO ONE (17:33)
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
--- NOTE | 2020-07-26 19:32 | Vascular Lab Report ---
DUPLEX DOPPLER LOWER EXTREMITY VEINS, BILATERAL INDICATION / CLINICAL INFORMATION: left calf pain. TECHNIQUE: Duplex doppler imaging was performed through the veins of both lower extremities using venous lev linda and other maneuvers. COMPARISON: None available. FINDINGS: RIGHT COMMON FEMORAL VEIN: Negative. RIGHT FEMORAL VEIN: Negative. RIGHT POPLITEAL VEIN: Negative. RIGHT CALF VEINS: Negative. LEFT COMMON FEMORAL VEIN: Negative. LEFT FEMORAL VEIN: Negative. LEFT POPLITEAL VEIN: Negative. LEFT CALF VEINS: Negative. ADDITIONAL FINDINGS: None. IMPRESSION: 1. No sonographic evidence for DVT in either lower extremity. Signer Name: Owen Schuler MD Signed: 07/26/2020 7:27 PM Workstation Name: [id number]
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
[2020-07-26] MEDS ORDERED: oxyCODONE 5 MG TAB PO ONE (22:14)
[2020-07-26 22:19] VITALS: BP 121/79
== END 2020-07-26 22:53 | disposition home or self-care (01) ==
LOC: ED 14:06
DX: R07.89 Other chest pain (principal); R06.00 Dyspnea, unspecified; I82.409 Acute embolism and thrombosis of unspecified deep veins of unspecified lower extremity; I26.99 Other pulmonary embolism without acute cor pulmonale; Z79.899 Other long term (current) drug therapy; Z88.8 Allergy status to other drugs, medicaments and biological substances; Z98.51 Tubal ligation status
CPT/HCPCS: 36415; 71045; 71275; 80048; 84484; 85025; 93005; 93971; 99284; Q9967

== ENCOUNTER 2022-05-04 12:37 | Emergency (ER) | payer SELFPAY ==
[2022-05-04 13:31] VITALS: BP 156/75
--- NOTE | 2022-05-04 14:29 | Emergency Department Report ---
ED Recheck HPI - General Chief Complaint: Eye Problems Stated Complaint: REF BY TREVA EYES NON ACTIVE TO LIGHT Time Seen by Provider: 05/04/22 14:27 Source: patient Mode of arrival: Ambulatory Limitations: No Limitations - History of Present Illness Initial Comments: Patient is sent to the emergency room by the plasma donation clinic because her pupils did not react on their exam. Home medications none. Denies alcohol or drugs. Denies any head trauma. Patient states she went to donate and they could not get her pupils to react. Patient has dark brown eyes and dark pupils, she is -[place]. - Related Data Previous Rx's Medication Instructions Recorded Last Taken Type Permethrin 5% [Acticin 5% CREAM] 1 applicatio TP ONCE #60 gram 11/16/13 05/13/14 Rx Cefuroxime Axetil [Ceftin] 500 mg PO Q12H #20 tablet 06/07/14 Unknown Rx Pantoprazole [Protonix TAB] 40 mg PO DAILY #30 tablet 06/07/14 Unknown Rx Sucralfate [Carafate] 1 gm PO ACHS #30 tablet 06/07/14 Unknown Rx Warfarin [Coumadin] 6 mg PO DAILY@1700 #30 tablet 06/07/14 Unknown Rx Ibuprofen [Motrin 600 MG tab] 600 mg PO Q8H PRN #30 tablet 07/24/17 Unknown Rx Itraconazole [Onmel] 200 mg PO QDAY #7 tab 07/24/17 Unknown Rx Ketoconazole (Nf) [Ketoconazole 120 ml TP 1XW #1 shampoo 01/04/18 Unknown Rx Shampoo (Nf)] predniSONE [Deltasone] 60 mg PO QDAY 5 Days #15 tab 01/04/18 Unknown Rx Apixaban [Eliquis] 5 mg PO Q12H 14 Days #74 tablet 08/03/18 Unknown Rx oxyCODONE /ACETAMINOPHEN [Percocet 1 tab PO Q6HR PRN #12 tablet 08/03/18 Unknown Rx 5/325 mg] Benzonatate [Tessalon Perles] 100 mg PO Q8HR PRN #10 capsule 07/26/20 Unknown Rx Ibuprofen [Motrin 600 MG tab] 600 mg PO Q8H PRN #14 tablet 07/26/20 Unknown Rx Prednisone [predniSONE 10 mg 10 mg PO .TAPER #1 tab.ds.pk 07/26/20 Unknown Rx (6-Day Pack, 21 Tabs)] traMADoL [Ultram 50 MG tab] 50 mg PO Q6HR PRN #10 tablet 07/26/20 Unknown Rx Allergies Allergy/AdvReac Type Severity Reaction Status Date / Time metronidazole [From Flagyl] Allergy Vomiting Verified 05/25/14 18:59 Metronidazole HCl Allergy Vomiting Verified 09/16/13 04:26 [From Flagyl] ED Review of Systems ROS: Stated complaint: REF BY TREVA EYES NON ACTIVE TO LIGHT Other details as noted in HPI Comment: All other systems reviewed and negative ED Past Medical Hx - Past Medical History Previous Medical History?: Yes Hx Hypertension: No Hx Congestive Heart Failure: No Hx Diabetes: No Hx Deep Vein Thrombosis: Yes Hx Pulmonary Embolism: Yes Hx Liver Disease: No Hx Renal Disease: No Hx Seizures: No Hx Asthma: No Hx COPD: No Additional medical history: DVT - Surgical History Past Surgical History?: Yes Additional Surgical History: csection. tubal ligation. 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 in her body - Family History Family history: no significant - Social History Smoking Status: Never Smoker Substance Use Type: None - Medications Home Medications: Home Medications Medication Instructions Recorded Confirmed Last Taken Type Permethrin 5% [Acticin 5% CREAM] 1 applicatio TP ONCE #60 gram 11/16/13 05/26/14 05/13/14 Rx Cefuroxime Axetil [Ceftin] 500 mg PO Q12H #20 tablet 06/07/14 Unknown Rx Pantoprazole [Protonix TAB] 40 mg PO DAILY #30 tablet 06/07/14 Unknown Rx Sucralfate [Carafate] 1 gm PO ACHS #30 tablet 06/07/14 Unknown Rx Warfarin [Coumadin] 6 mg PO DAILY@1700 #30 tablet 06/07/14 Unknown Rx Ibuprofen [Motrin 600 MG tab] 600 mg PO Q8H PRN #30 tablet 07/24/17 Unknown Rx Itraconazole [Onmel] 200 mg PO QDAY #7 tab 07/24/17 Unknown Rx Ketoconazole (Nf) [Ketoconazole 120 ml TP 1XW #1 shampoo 01/04/18 Unknown Rx Shampoo (Nf)] predniSONE [Deltasone] 60 mg PO QDAY 5 Days #15 tab 01/04/18 Unknown Rx Apixaban [Eliquis] 5 mg PO Q12H 14 Days #74 tablet 08/03/18 Unknown Rx oxyCODONE /ACETAMINOPHEN [Percocet 1 tab PO Q6HR PRN #12 tablet 08/03/18 Unknown Rx 5/325 mg] Benzonatate [Tessalon Perles] 100 mg PO Q8HR PRN #10 capsule 07/26/20 Unknown Rx Ibuprofen [Motrin 600 MG tab] 600 mg PO Q8H PRN #14 tablet 07/26/20 Unknown Rx Prednisone [predniSONE 10 mg 10 mg PO .TAPER #1 tab.ds.pk 07/26/20 Unknown Rx (6-Day Pack, 21 Tabs)] traMADoL [Ultram 50 MG tab] 50 mg PO Q6HR PRN #10 tablet 07/26/20 Unknown Rx ED Physical Exam - General Limitations: No Limitations General appearance: alert, in no apparent distress - Head Head exam: Present: atraumatic, normocephalic - Eye Eye exam: Present: normal appearance - ENT ENT exam: Present: mucous membranes moist - Neck Neck exam: Present: normal inspection - Respiratory Respiratory exam: Present: normal lung sounds bilaterally. Absent: respiratory distress - Cardiovascular Cardiovascular Exam: Present: regular rate, normal rhythm. Absent: systolic murmur, diastolic murmur, rubs, gallop - GI/Abdominal GI/Abdominal exam: Present: soft, normal bowel sounds - Extremities Exam Extremities exam: Present: normal inspection - Back Exam Back exam: Present: normal inspection - Neurological Exam Neurological exam: Present: alert, oriented X3 - Psychiatric Psychiatric exam: Present: normal affect, normal mood - Skin Skin exam: Present: warm, dry, intact, normal color. Absent: rash ED Course Vital Signs 05/04/22 13:27 Temperature 97.9 F Pulse Rate 70 Respiratory 16 Rate Blood Pressure 156/75 [Left] O2 Sat by Pulse 99 Oximetry ED Recheck MDM - Core Measures Measure Exclusions: not indicated - Medical Decision Making Vital Signs 05/04/22 13:27 Temperature 97.9 F Pulse Rate 70 Respiratory 16 Rate Blood Pressure 156/75 [Left] O2 Sat by Pulse 99 Oximetry Pupils equal round react to light bilaterally. No focal neurodeficit. Patient being discharged home with discharge plan of care including diet, activity, medications and follow-up. Critical care attestation.: If time is entered above; I have spent that time in minutes in the direct care of this critically ill patient, excluding procedure time. ED Disposition Clinical Impression: Wellness examination Disposition: 01 HOME / SELF CARE / HOMELESS Is pt being admited?: No Does the pt Need Aspirin: No Condition: Stable Referrals: BEULAH MCNEIL MD [Staff Physician] - 3-5 Days Time of Disposition: 14:28
== END 2022-05-04 15:00 | disposition home or self-care (01) ==
LOC: ED 12:37
DX: Z00.00 Encounter for general adult medical examination without abnormal findings (principal); I82.409 Acute embolism and thrombosis of unspecified deep veins of unspecified lower extremity; I26.99 Other pulmonary embolism without acute cor pulmonale; Z98.890 Other specified postprocedural states; Z88.1 Allergy status to other antibiotic agents
CPT/HCPCS: 99281